=== PATIENT | male | born 1955 | race Caucasian/White ===

== ENCOUNTER → 2016-02-16 | Outpatient (CLI) | payer OTHER ==
[~2016-02-16] MED LIST: 1-ME1LIQ PO; LORTA5 PO; LOSA100T PO; PRIL20CA PO; Z.0.WALKERFRONT
[2016-02-16 08:26] LABS: AUTOMATED NEUTROPHIL # 4.7 TH/MM3 (1.8-7.7); BASOPHIL % 0.5 % (0.0-2.0); EOSINOPHIL # 0.1 TH/MM3 (0-0.4); EOSINOPHIL % 1.6 % (0.0-4.0); HEMATOCRIT 45.1 % (39.0-51.0); HEMO FLAGS DIFF FINAL; LYMPHOCYTE # 1.3 TH/MM3 (1.0-4.8); MEAN CELL VOLUME 86.1 FL (80.0-100.0); MEAN CORPUSCULAR HEMOGLOBIN 29.6 PG (27.0-34.0); MEAN CORPUSCULAR HGB CONC 34.4 % (32.0-36.0); MONO % 5.3 % (0.0-8.0); NEUT % 72.6 % (16.0-70.0); PLATELET COUNT 189 TH/MM3 (150-450); RED BLOOD COUNT 5.23 MIL/MM3 (4.50-5.90); RED CELL DISTRIBUTION WIDTH 12.8 % (11.6-17.2); WHITE BLOOD COUNT 6.5 TH/MM3 (4.0-11.0)
[2016-02-16 08:34] LABS: BLOOD, URINE NEG (NEG); COMMENT (UR) CULT NOT INDICATED; CULTURE IF INDICATED CULT NOT INDICATED; GLUCOSE,URINE NEG (NEG); KETONE, URINE NEG (NEG); MUCUS URINE FEW /lpf (OCC); NITRITE,URINE NEG (NEG); PH, URINE 5.5 (5.0-8.5); URINE COLOR YELLOW (YELLW/STRAW)
[2016-02-16 08:42] LABS: ALT (GPT) 42 U/L (12-78); ANION GAP 8 MEQ/L (5-15); AST (GOT) 16 U/L (15-37); BICARBONATE 26.5 MEQ/L (21.0-32.0); BLOOD UREA NITROGEN 17 MG/DL (7-18); CHLORIDE 107 MEQ/L (98-107); GLOMERULAR FILTRATION RATE 57 ML/MIN (>89); GLUCOSE,FASTING 110 MG/DL (74-99); POTASSIUM 4.3 MEQ/L (3.5-5.1); SODIUM (NA) 141 MEQ/L (136-145)
[2016-02-16 08:51] LABS: ALKALINE PHOSPHATASE 62 U/L (45-117); FREE T4 0.98 NG/DL (0.76-1.46); HDL CHOLESTEROL 40.1 MG/DL (40.0-60.0); LDL CHOLESTEROL 124 MG/DL (0-99); TOTAL BILIRUBIN ADULT 0.7 MG/DL (0.2-1.0)
== END ==
LOC: CLAB 07:52
PROVIDERS: ATTEND Internal Medicine
DX: N40.1 Benign prostatic hyperplasia with lower urinary tract symptoms (principal); I10 Essential (primary) hypertension; R53.83 Other fatigue; E29.1 Testicular hypofunction; Z12.11 Encounter for screening for malignant neoplasm of colon; Z79.899 Other long term (current) drug therapy
CPT/HCPCS: 36415; 80053; 80061; 81001; 84153; 84403; 84439; 84443; 84481; 85025

== ENCOUNTER → 2017-02-26 | Outpatient (CLI) | payer OTHER ==
[2017-02-26 08:19] LABS: MEAN CELL VOLUME 88.2 FL (80.0-100.0); MEAN PLATELET VOLUME 8.9 FL (7.0-11.0); NEUT % 71.4 % (16.0-70.0); PLATELET COUNT 197 TH/MM3 (150-450); RED BLOOD COUNT 4.99 MIL/MM3 (4.50-5.90); RED CELL DISTRIBUTION WIDTH 12.5 % (11.6-17.2); WHITE BLOOD COUNT 6.2 TH/MM3 (4.0-11.0)
[2017-02-26 08:20] LABS: AUTOMATED NEUTROPHIL # 4.4 TH/MM3 (1.8-7.7); BASOPHIL % 0.6 % (0.0-2.0); EOSINOPHIL # 0.1 TH/MM3 (0-0.4); EOSINOPHIL % 1.7 % (0.0-4.0); LYMPH % 20.8 % (9.0-44.0); LYMPHOCYTE # 1.3 TH/MM3 (1.0-4.8); MONO % 5.5 % (0.0-8.0); MONOCYTE # 0.3 TH/MM3 (0-0.9)
[2017-02-26 08:32] LABS: BILIRUBIN, URINE NEG (NEG); BLOOD, URINE NEG (NEG); GLUCOSE,URINE NEG (NEG); KETONE, URINE NEG (NEG); MUCUS URINE FEW /lpf (OCC); NITRITE,URINE NEG (NEG); PH, URINE 6.5 (5.0-8.5); URINE COLOR YELLOW (YELLW/STRAW); URINE LEUKOCYTE ESTERASE SMALL (NEG)
[2017-02-26 08:47] LABS: ALBUMIN 4.2 GM/DL (3.4-5.0); AST (GOT) 18 U/L (15-37); BICARBONATE 28.6 MEQ/L (21.0-32.0); BLOOD UREA NITROGEN 16 MG/DL (7-18); CALCIUM 8.5 MG/DL (8.5-10.1); CHLORIDE 104 MEQ/L (98-107); CHOLESTEROL 172 MG/DL (120-200); GLOMERULAR FILTRATION RATE 62 ML/MIN (>89); GLUCOSE,FASTING 97 MG/DL (74-99); SODIUM (NA) 139 MEQ/L (136-145)
[2017-02-26 09:12] LABS: ALKALINE PHOSPHATASE 61 U/L (45-117); ALT (GPT) 38 U/L (12-78); CHOLESTEROL/ HDL RATIO 4.59 RATIO; FREE T3 3.13 PG/ML (2.18-3.98); FREE T4 0.97 NG/DL (0.76-1.46); HDL CHOLESTEROL 37.4 MG/DL (40.0-60.0); LDL CHOLESTEROL 114 MG/DL (0-99); TOTAL BILIRUBIN ADULT 0.7 MG/DL (0.2-1.0); TOTAL PROTEIN 7.6 GM/DL (6.4-8.2); TRIGLYCERIDES 103 MG/DL (42-150)
== END ==
LOC: CLAB 07:43
PROVIDERS: ATTEND Urology
DX: R97.20 Elevated prostate specific antigen [PSA] (principal); E29.1 Testicular hypofunction; Z12.11 Encounter for screening for malignant neoplasm of colon; Z12.5 Encounter for screening for malignant neoplasm of prostate
CPT/HCPCS: 36415; 80053; 80061; 81001; 82607; 84153; 84403; 84439; 84443; 84481; 85025

== ENCOUNTER 2017-11-16 20:35 | Inpatient (IN) ==
[2017-11-16] MEDS ORDERED: Aspirin 325 MG Tablet PO ONE (20:58)
--- NOTE | 2017-11-16 21:05 | XR ---
EXAM DATE: 11/16/2017 8:48 PM EDT AGE/SEX: 62 years / Male INDICATIONS: Chest pain CLINICAL DATA: This is the patient's initial encounter. Patient reports that signs and symptoms have been present for 1 day and indicates a pain score of 0/10. MEDICAL/SURGICAL HISTORY: Hypertension. None. COMPARISON: [facility] [place], CHEST PA & LAT, 11/06/2012. . FINDINGS: A single AP view of the chest demonstrates the lungs to be symmetrically aerated without evidence of mass, infiltrate or effusion. The cardiomediastinal contours are unremarkable. Osseous structures a re intact. CONCLUSION: The lungs are clear. Electronically signed by: Leo Sutherland MD 11/16/2017 9:04 PM EDT
[2017-11-16 21:12] LABS: Baso % (Auto) 0.4 % (0.0-2.0); Eos # (Auto) 0.1 th/mm3 (0.0-0.4); Eos % (Auto) 0.8 % (0.0-4.0); Hematocrit 42.7 % (39.0-51.0); Lymph # (Auto) 1.8 th/mm3 (1.0-4.8); Lymph % (Auto) 21.7 % (9.0-44.0); Mean Corpuscular Hemoglobin 30.9 pg (27.0-34.0); Mean Corpuscular Volume 88.1 fL (80.0-100.0); Mean Platelet Volume 9.4 fL (7.0-11.0); Mono # (Auto) 0.2 th/mm3 (0.0-0.9); Mono % (Auto) 2.5 % (0.0-8.0); Neut # (Auto) 6.2 th/mm3 (1.8-7.7); Neut % (Auto) 74.6 % (16.0-70.0); Platelet Count 175 th/mm3 (150-450); Red Blood Count 4.85 mil/mm3 (4.50-5.90); Red Cell Distribution Width 12.7 % (11.6-17.2); White Blood Count 8.3 th/mm3 (4.0-11.0)
--- NOTE | 2017-11-16 21:19 | ED ---
HPI General Chief complaint: Chest Pain Stated complaint: chest pain Time Seen by Provider: 11/16/17 20:46 History of Present Illness HPI narrative: Patient is a 62-year-old male that presents for the evaluation of feeling as if he was going to pass out. The patient states that around an hour ago he was sitting at the table within his home when he began to feel flush in the face, palpitations, and weakness. The patient states that nothing like this has ever happened before. He states that the only other time he has ever felt like this is when he had a severe reaction to sulfa medication. However, the patient states that he is not experiencing any throat itchiness or swelling now. He denies any recent exposure to sulfa drugs. The patient's , who states she is a retired nurse, is at the bedside and states that she took his BP and HR at home. She states that when she measured his BP at home it was 70/40. She states that his HR was 130. The patient states that he currently feels much better than he did at home. He denies any pain at this time. Upon review of symptoms the patient reports chills and shivering which he states were much worse at home. He denies chest pain or shortness of breath. He denies dizziness and headache. He states that when the symptoms first began he did feel lightheaded. He denies vomiting but states that he does feel nauseous. Patient denies any history of chest pain. He denies any chest pain during the entire symptoms but per he did complain of heaviness to his chest and did appear to be catching his breath a couple of times. Patient completely denies this however. Related Data Home Medications Medication Instructions Recorded Confirmed aspirin [Aspir-81] 81 mg PO 3XW 11/16/17 11/16/17 losartan 100 mg PO DAILY 11/16/17 11/16/17 omeprazole magnesium [Prilosec OTC] 20 mg PO EVERY OTHER DAY 11/16/17 11/16/17 Allergies Allergy/AdvReac Type Severity Reaction Status Date / Time Sulfa (Sulfonamide Allergy Severe LOW B/P, Verified 11/16/17 20:42 Antibiotics) SOB,RAPID HEART RATE PMFSH Medical History Medical History HTN (hypertension) (Acute) Mitral valve prolapse (Acute) Surgical History Surgical History History of left knee replacement (Acute) S/P cervical spinal fusion (Acute) Social History Social History Substance History: No History of Abuse Second Hand Smoke Exposure: No Smoking Status: Never smoker How Often Do You Have a Drink Containing Alcohol: 2 to 3 times a week Recent Travel in [facility] within the Last 8 Weeks: No Recent Out of Country Travel within the Last 8 Weeks: No Immunization History Tetanus Immunization: <5 Years Exam Narrative Exam Narrative: GENERAL: well appearing SKIN: Focused skin assessment warm/dry. HEAD: Atraumatic. Normocephalic. EYES: Pupils equal and round. No scleral icterus. No injection or drainage. ENT: No nasal bleeding or discharge. Mucous membranes pink and moist. Tongue is midline. No uvula deviation. NECK: Trachea midline. No JVD. CARDIOVASCULAR: Regular rate and rhythm. No murmur appreciated. RESPIRATORY: No accessory muscle use. Clear to auscultation. Breath sounds equal bilaterally. GASTROINTESTINAL: Abdomen soft, non-tender, nondistended. Hepatic and splenic margins not palpable. MUSCULOSKELETAL: No obvious deformities. No clubbing. No cyanosis. No edema. Full range of motion of the upper and lower extremities bilaterally. 2+ pulses bilaterally. NEUROLOGICAL: Awake and alert. No obvious cranial nerve deficits. Motor grossly within normal limits. Normal speech. PSYCHIATRIC: Appropriate mood and affect; insight and judgment normal. Course Initial Documented Vital Signs Temperature 97.8 F 11/16/17 20:37 Pulse Rate 74 11/16/17 20:37 Respiratory Rate 16 11/16/17 20:37 Blood Pressure 196/95 H 11/16/17 20:37 Pulse Oximetry 99 11/16/17 20:37 Last Documented Vital Signs Temperature 97.8 F 11/16/17 20:37 Pulse Rate 95 H 11/16/17 22:41 Respiratory Rate 16 11/16/17 22:41 Blood Pressure 143/67 H 11/16/17 22:41 Pulse Oximetry 95 11/16/17 22:41 Medical Decision Making MDM Narrative Medical Screen Exam Complete: Yes Emergency Medical Condition: Yes Differential Diagnosis Differential Diagnosis: NSTEMI versus ACS versus STEMI versus presyncope versus syncope versus dehydration versus palpitations Medical Records Medical records reviewed: Yes I reviewed the patient's medical records. Lab Data Lab results reviewed: Yes I reviewed the patient's lab results. Lab results narrative: Troponin slightly elevated. Coags within normal limits. Result diagrams: 11/16/17 20:55 11/16/17 20:55 Lab Results 11/16/17 11/16/17 11/16/17 Range/Units 20:55 20:55 20:55 WBC 8.3 (4.0-11.0) th/mm3 RBC 4.85 (4.50-5.90) mil/mm3 Hgb 15.0 (13.0-17.0) gm/dL Hct 42.7 (39.0-51.0) % MCV 88.1 (80.0-100.0) fL MCH 30.9 (27.0-34.0) pg MCHC 35.0 (32.0-36.0) % RDW 12.7 (11.6-17.2) % Plt Count 175 (150-450) th/mm3 MPV 9.4 (7.0-11.0) fL Neut % (Auto) 74.6 H (16.0-70.0) % Lymph % (Auto) 21.7 (9.0-44.0) % [place] % (Auto) 2.5 (0.0-8.0) % Eos % (Auto) 0.8 (0.0-4.0) % Baso % (Auto) 0.4 (0.0-2.0) % Neut # (Auto) 6.2 (1.8-7.7) th/mm3 Lymph # (Auto) 1.8 (1.0-4.8) th/mm3 [place] # (Auto) 0.2 (0.0-0.9) th/mm3 Eos # (Auto) 0.1 (0.0-0.4) th/mm3 Baso # (Auto) 0.0 (0.0-0.2) th/mm3 WBC Differential . Differential Comment Auto diff final PT 10.6 (9.8-11.6) sec INR 1.0 Ratio APTT 22.8 L (24.3-30.1) sec Sodium 144 (136-145) meq/L Potassium 4.0 (3.5-5.1) meq/L Chloride 105 (98-107) meq/L Carbon Dioxide 26.0 (21.0-32.0) meq/L Anion Gap 13 (5-15) meq/L BUN 15 (7-18) mg/dL Creatinine 1.47 H (0.60-1.30) mg/dL Estimated GFR 49 L (>89) mL/min Random Glucose 158 H (74-106) mg/dL Calcium 7.8 L (8.5-10.1) mg/dL Magnesium 2.1 (1.5-2.5) mg/dL Total Bilirubin 0.5 (0.2-1.0) mg/dL AST 27 (15-37) U/L ALT 42 (12-78) U/L Alkaline Phosphatase 59 (45-117) U/L Total Creatine Kinase 329 H (39-308) U/L CK-MB (CK-2) 4.3 H (0.5-3.6) ng/mL CK-MB (CK-2) % 1.3 (0.0-4.0) % Troponin I 0.17 H (0.02-0.05) ng/mL Total Protein 7.4 (6.4-8.2) g/dL Albumin 4.1 (3.4-5.0) g/dL Lipase 119 (73-393) U/L Imaging Data Attestation: I personally reviewed and interpreted this imaging study as follows : Radiologist's impression: Chest X-Ray 11/16/17 20:48 CONCLUSION: The lungs are clear. Head CT 11/16/17 20:58 CONCLUSION: 1. Negative noncontrast CT brain. . ECG Data Attestation: I personally reviewed and interpreted this ECG as follows: Interpretation: EKG shows sinus rhythm with no sign of acute ischemia and arrhythmia read by me and attending. [place] interval of 176 milliseconds, ventricular rate of 77 bpm. No signs of ST elevation or ischemia. Discharge Plan Discharge Disposition Patient Disposition: 30 Still Patient Discharge Details Diagnosis: Acute non-ST elevation myocardial infarction (NSTEMI) Physicians Team ED Provider: Malvin [facility] ED Midlevel Provider: Robert Galaviz Primary Care Provider: Ino Olson Attending Provider: Julia Nair Interventions Interventions: Vital Signs Last Done: 11/16/17 22:41 Status ED Status: Admitted Patient
[2017-11-16 21:24] LABS: Activated Partial Thrombo Time 22.8 sec (24.3-30.1); Prothrombin Time 10.6 sec (9.8-11.6)
[2017-11-16 21:28] LABS: Alanine Aminotransferase 42 U/L (12-78); Albumin 4.1 g/dL (3.4-5.0); Anion Gap 13 meq/L (5-15); Aspartate Aminotransferase 27 U/L (15-37); Blood Urea Nitrogen 15 mg/dL (7-18); Calcium 7.8 mg/dL (8.5-10.1); Chloride 105 meq/L (98-107); Glucose,Random 158 mg/dL (74-106); Lipase 119 U/L (73-393); Magnesium 2.1 mg/dL (1.5-2.5); Sodium 144 meq/L (136-145)
[2017-11-16 21:33] LABS: Alkaline Phosphatase 59 U/L (45-117); Creatine Kinase 329 U/L (39-308); Glomerular Filtration Rate 49 mL/min (>89); Total Protein 7.4 g/dL (6.4-8.2); Troponin I 0.17 ng/mL (0.02-0.05)
[2017-11-16 21:46] LABS: CKMB Percent 1.3 % (0.0-4.0); Creatine Kinase MB 4.3 ng/mL (0.5-3.6)
--- NOTE | 2017-11-16 22:06 | CT ---
EXAM DATE: 11/16/2017 9:04 PM EDT AGE/SEX: 62 years / Male INDICATIONS: Altered mental status. CLINICAL DATA: This is the patient's initial encounter. Patient reports that signs and symptoms have been present for 1 day and indicates a pain score of 0/10. MEDICAL/SURGICAL HISTORY: Cardiovascular disease. Hypertension. Fusion, cervical. Total knee repl acement, left. RADIATION DOSE: 37.21 CTDI (mGy) COMPARISON: No prior exams available for comparison. TECHNIQUE: CT of the head without contrast. Using automated exposure control and adjustment of the mA and/or kV according to patient size, radiation dose was kept as low as reasonably achievable to ob tain optimal diagnostic quality images. DICOM format image data is available electronically for revi ew and comparison. FINDINGS: Cerebrum: The ventricles are normal for age. No evidence of midline shift, mass lesion, hemorrhage or acute infarction. No extraaxial fluid collections are seen. Posterior Fossa: The cerebellum and brainstem are intact. The 4th ventricle is midline. The cerebe llopontine angle is unremarkable. Extracranial: The visualized portion of the orbits is intact. Skull: The calvaria is intact. No evidence of skull fracture. CONCLUSION: 1. Negative noncontrast CT brain. . Electronically signed by: Leo Sutherland MD 11/16/2017 10:04 PM EDT
[2017-11-16] MEDS ORDERED: Heparin 10,000 UNITS/10 ML Vial (for IV use) IV.PUSH STA (22:26)
[2017-11-16] MEDS: Heparin Drip 25,000 UNIT/250 ML BAG IV.CONT PRN (22:39)
[2017-11-16] MEDS ORDERED: Morphine Inj 4 MG/ML Vial IV.PUSH PRN (22:49)
[2017-11-16] MEDS ORDERED: Bisacodyl 10 MG Supp RECTAL PRN (22:50)
--- NOTE | 2017-11-16 22:51 | P.HPIM ---
History of Present Illness Primary Care Physician: Ino Olson MD History of Present Illness: This is a 62-year-old male with a PMH of HTN who was brought to the ER by EMS secondary to episode of dizziness and diaphoresis. Pt states he was at home having dinner when he had sudden onset of facial flushing and dizziness. 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 Upon EMS arrival, BP had normalized. Pt without complaints of chest pain or SOB. Reports following w/ Dr. Troy in the past for c/o SOB, had negative Stress Test, Echo, Holter and PFTs at that time. On arrival, BP 196/95, HR 74, O2 sat 99% on RA, Afebrile. CBC unremarkable. INR 1.0. Creatinine 1.47, no previous labs for comparison. GFR 49. CPK 329. Troponin 0.17. CXR with no acute findings. CT Head negative. Currently on Heparin gtt. Remains chest pain free. - Diagnosis (1) NSTEMI (non-ST elevated myocardial infarction) (2) Renal insufficiency (3) Dehydration Review of Systems PAST FAMILY HISTORY: Reviewed. No h/o DM or CAD All other systems reviewed negative except as stated in HPI PMFSH - History History Provided By: Patient - Medical History Medical History: Medical History (Last Reviewed 11/16/17 @ 22:58 by KATELIN Gleason) HTN (hypertension) Mitral valve prolapse - Surgical History Surgical History: Surgical History (Last Reviewed 11/16/17 @ 22:58 by KATELIN Gleason) History of left knee replacement S/P cervical spinal fusion - Tobacco History Second Hand Smoke Exposure: No Smoking Status: Never smoker - Alcohol History How Often Do You Have a Drink Containing Alcohol: 2 to 3 times a week - Substance Use History Substance History: No History of Abuse - Travel History Recent Travel in the [place] Within the Last 8 Weeks: No Recent Travel Out of the Country Within the Last 8 Weeks: No - Immunization History Tetanus Immunization: <5 Years Medications and Allergies Active Medications: Active Medications Heparin Sodium/Dextrose (Heparin/D5w 25,000 U/250 Ml) 25,000 unit in 250 mls @ 0 mls/hr IV.CONT TITRATE PRN; Protocol PRN Reason: Per Protocol Last Admin: 11/16/17 22:39 Dose: 1,000 units/hr, 10 mls/hr Sodium Chloride (Ns Flush) 2 ml IV.FLUSH UNSCH PRN PRN Reason: FLUSH AFTER USING IV ACCESS Allergies Allergy/AdvReac Type Severity Reaction Status Date / Time Sulfa (Sulfonamide Allergy Severe LOW B/P, Verified 11/16/17 20:42 Antibiotics) SOB,RAPID HEART RATE Home Medications Medication Instructions Recorded Confirmed Type aspirin [Aspir-81] 81 mg PO 3XW 11/16/17 11/16/17 History losartan 100 mg PO DAILY 11/16/17 11/16/17 History omeprazole magnesium [Prilosec OTC] 20 mg PO EVERY OTHER DAY 11/16/17 11/16/17 History Exam Vital signs: Vital Signs 11/16/17 20:37 11/16/17 20:41 11/16/17 22:41 Temperature 97.8 F Pulse Rate 74 78 95 H Respiratory Rate 16 18 16 Blood Pressure 196/95 H 176/86 H 143/67 H Pulse Oximetry 99 97 95 Intake & Output 11/16/17 11/16/17 11/17/17 06:59 18:59 06:59 Weight 99.79 kg Narrative: PE: GENERAL: Extremely pleasant middle-aged white male in no acute distress. at bedside. +facial flushing. SKIN: Focused skin assessment warm and dry. HEENT: PERRLA, EOMI. No scleral icterus or conjunctival pallor. No lid lag or facial droop. CARDIOVASCULAR: Regular rate and rhythm. No obvious murmurs to auscultation. No chest tenderness to palpation. RESPIRATORY: No obvious rhonchi or wheezing. Clear to auscultation. Breath sounds equal bilaterally. GASTROINTESTINAL: Abdomen soft, non-tender, nondistended. BS normal. MUSCULOSKELETAL: Extremities without clubbing, cyanosis, or edema. No obvious deformities. NEUROLOGICAL: Awake, alert and oriented x4. No focal neurologic deficits. Moving both upper and lower extremities spontaneously. PSYCHIATRIC: Appropriate mood and affect. Insight and judgment normal. Results - Labs CBC & Chem 7: 11/16/17 20:55 11/16/17 20:55 Labs: Short CBC 11/16/17 Range/Units 20:55 WBC 8.3 (4.0-11.0) th/mm3 Hgb 15.0 (13.0-17.0) gm/dL Hct 42.7 (39.0-51.0) % Plt Count 175 (150-450) th/mm3 BMP 11/16/17 20:55 Sodium 144 Potassium 4.0 Chloride 105 Carbon Dioxide 26.0 BUN 15 Creatinine 1.47 H Calcium 7.8 L Cardiac Enzymes 11/16/17 Range/Units 20:55 Total Creatine Kinase 329 H (39-308) U/L CK-MB (CK-2) 4.3 H (0.5-3.6) ng/mL Troponin I 0.17 H (0.02-0.05) ng/mL Liver Function 11/16/17 Range/Units 20:55 Total Bilirubin 0.5 (0.2-1.0) mg/dL AST 27 (15-37) U/L ALT 42 (12-78) U/L Alkaline Phosphatase 59 (45-117) U/L Albumin 4.1 (3.4-5.0) g/dL - Imaging Impressions Chest X-Ray 11/16/17 20:48 CONCLUSION: The lungs are clear. Head CT 11/16/17 20:58 CONCLUSION: 1. Negative noncontrast CT brain. . Caprini VTE Risk Assessment Caprini VTE Risk Assessment: No/Low Risk (score <= 1) Caprini Risk Assessment Model: Point Value = 1 Point Value = 2 Point Value = 3 Point Value = 5 Age 41-60 Minor surgery BMI > 25 kg/m2 Swollen legs Varicose veins or History of unexplained or recurrent spontaneous Oral contraceptives or hormone replacement Sepsis (< 1 month) Serious lung disease, including pneumonia (< 1 month) Abnormal pulmonary function Acute myocardial infarction Congestive heart failure (< 1 month) History of inflammatory bowel disease Medical patient at bed rest Age 61-74 Arthroscopic surgery Major open surgery (> 45 min) Laparoscopic surgery (> 45 min) Malignancy Confined to bed (> 72 hours) Immobilizing plaster cast Central venous access Age >= 75 History of VTE Family history of VTE Factor V Leiden Prothrombin [id number] Lupus anticoagulant Anticardiolipin antibodies Elevated serum homocysteine Heparin-induced thrombocytopenia Other congenital or acquired thrombophilia Stroke (< 1 month) Elective arthroplasty Hip, pelvis, or leg fracture Acute spinal cord injury (< 1 month) Prophylaxis Regimen: Total Risk Factor Score Risk Level Prophylaxis Regimen 0-1 Low Early ambulation 2 Moderate Order ONE of the following: *Sequential Compression Device (SCD) *Heparin 5000 units SQ BID 3-4 Higher Order ONE of the following medications: *Heparin 5000 units SQ TID *Enoxaparin/Lovenox 40 mg SQ daily (WT < 150 kg, CrCl > 30 mL/min) *Enoxaparin/Lovenox 30 mg SQ daily (WT < 150 kg, CrCl > 10-29 mL/min) *Enoxaparin/Lovenox 30 mg SQ BID (WT < 150 kg, CrCl > 30 mL/min) AND/OR *Sequential Compression Device (SCD) 5 or more Highest Order ONE of the following medications: *Heparin 5000 units SQ TID (Preferred with Epidurals) *Enoxaparin/Lovenox 40 mg SQ daily (WT < 150 kg, CrCl > 30 mL/min) *Enoxaparin/Lovenox 30 mg SQ daily (WT < 150 kg, CrCl > 10-29 mL/min) *Enoxaparin/Lovenox 30 mg SQ BID (WT < 150 kg, CrCl > 30 mL/min) AND *Sequential Compression Device (SCD) Assessment and Plan - Assessment (1) NSTEMI (non-ST elevated myocardial infarction) Code(s): I21.4 - Non-ST elevation (NSTEMI) myocardial infarction Status: Acute (2) Renal insufficiency Code(s): N28.9 - Disorder of kidney and ureter, unspecified Status: Acute (3) Dehydration Code(s): E86.0 - Dehydration Status: Acute - Plan A/P: 1. NSTEMI: Trop 0.17, EKG w/ no acute ischemia, remains chest pain free, currently on Heparin gtt, will continue. Add ASA, Statin and Metoprolol. Admit to [facility], telemetry, check serial cardiac enzymes, check Lipid Profile. Consult Cardiology, following w/ Dr. Troy in the past. NPO, IVF. NTG/ Morphine prn. 2. JOSEPH: Creatinine 1.47, no previous labs for comparison, presumably new. IVF for hydration, monitor I/O, repeat labs in am. 3. Dehydration: GFR 49, transient episode of hypotension, now resolved, continue IVF, monitor vitals closely, monitor I/O. 4. DVT Prophylaxis: Heparin gtt 5. Social work for d/c planning as needed. 6. Case discussed w/ ER physician at length, labs/records/imaging reviewed by me.
[2017-11-16] MEDS: Sod Chloride 0.9% Inj 1,000 ML IV.CONT SCH (23:38)
[2017-11-17 03:27] LABS: Baso % (Auto) 0.4 % (0.0-2.0); Eos # (Auto) 0.1 th/mm3 (0.0-0.4); Eos % (Auto) 0.8 % (0.0-4.0); Hematocrit 39.3 % (39.0-51.0); Hemoglobin 13.3 gm/dL (13.0-17.0); Lymph # (Auto) 1.5 th/mm3 (1.0-4.8); Lymph % (Auto) 13.8 % (9.0-44.0); Mean Corpuscular HGB Conc 33.8 % (32.0-36.0); Mean Corpuscular Hemoglobin 29.8 pg (27.0-34.0); Mean Corpuscular Volume 88.3 fL (80.0-100.0); Mean Platelet Volume 8.8 fL (7.0-11.0); Mono # (Auto) 0.5 th/mm3 (0.0-0.9); Mono % (Auto) 4.5 % (0.0-8.0); Neut # (Auto) 8.9 th/mm3 (1.8-7.7); Neut % (Auto) 80.5 % (16.0-70.0); Platelet Count 165 th/mm3 (150-450); Red Blood Count 4.45 mil/mm3 (4.50-5.90); Red Cell Distribution Width 12.7 % (11.6-17.2)
[2017-11-17 03:52] LABS: Alanine Aminotransferase 36 U/L (12-78); Albumin 3.5 g/dL (3.4-5.0); Anion Gap 9 meq/L (5-15); Aspartate Aminotransferase 19 U/L (15-37); Blood Urea Nitrogen 15 mg/dL (7-18); Calcium 7.7 mg/dL (8.5-10.1); Carbon Dioxide 27.3 meq/L (21.0-32.0); Chloride 108 meq/L (98-107); Cholesterol 140 mg/dL (120-200); Glomerular Filtration Rate 55 mL/min (>89); Glucose,Random 104 mg/dL (74-106); Sodium 144 meq/L (136-145)
[2017-11-17 03:55] LABS: Alkaline Phosphatase 49 U/L (45-117); Creatine Kinase 222 U/L (39-308); HDL Cholesterol 31.1 mg/dL (40.0-60.0); LDL Cholesterol,Calculated 82 mg/dL (0-99); Total Protein 6.4 g/dL (6.4-8.2); Triglycerides 137 mg/dL (42-150); Troponin I 0.16 ng/mL (0.02-0.05)
[2017-11-17 04:07] LABS: Creatine Kinase MB 2.8 ng/mL (0.5-3.6)
[2017-11-17] MEDS: Metoprolol Tartrate 25 MG Tablet PO SCH ×2 (08:13→21:38)
[2017-11-17] MEDS: Senna/Docusate Sodium 8.6/50 MG Tablet PO SCH ×2 (08:17→21:39)
--- NOTE | 2017-11-17 10:25 | ECG ---
Date Performed: 11/16/2017 Time Performed: 20:50:54 PTAGE: 62 years EKG: Sinus rhythm MODERATE INTRAVENTRICULAR CONDUCTION DELAY BORDERLINE ECG Since the PREVIOUS TRACING , no significant change noted PREVIOUS TRACIN11/14/2014 11.02 DOCTOR: Coby Keller Interpretating Date/Time 11/17/2017 10:23:10
[2017-11-17] MEDS: Sod Chloride 0.9% Inj 1,000 ML IV.CONT SCH ×2 (10:30→21:38)
[2017-11-17] MEDS: Acetaminophen 325 MG Tablet PO PRN (11:02)
--- NOTE | 2017-11-17 11:34 | P.PNIM ---
Subjective Interval history: The patient was resting comfortably in bed. His family was at the bedside. Their questions were answered. The patient denied any symptoms. Discussed with nursing. Physical Exam Vital signs: Vital Signs 11/16/17 20:37 11/16/17 20:41 11/16/17 22:41 Temperature 97.8 F Pulse Rate 74 78 95 H Respiratory Rate 16 18 16 Blood Pressure 196/95 H 176/86 H 143/67 H Pulse Oximetry 99 97 95 11/16/17 23:46 11/17/17 00:00 11/17/17 01:00 Temperature 98.8 F Pulse Rate 90 86 74 Respiratory Rate 22 16 Blood Pressure 136/77 131/82 Pulse Oximetry 97 97 11/17/17 02:00 11/17/17 03:00 11/17/17 04:00 Temperature Pulse Rate 68 62 70 Respiratory Rate 16 Blood Pressure 115/60 Pulse Oximetry 98 11/17/17 05:00 11/17/17 06:00 11/17/17 07:00 Temperature 97.9 F Pulse Rate 62 58 L 62 Respiratory Rate 18 Blood Pressure 130/76 Pulse Oximetry 96 11/17/17 08:00 11/17/17 09:00 11/17/17 10:00 Temperature Pulse Rate 62 64 58 L Respiratory Rate Blood Pressure Pulse Oximetry 96 11/17/17 11:00 Temperature 98.8 F Pulse Rate 59 L Respiratory Rate 18 Blood Pressure 141/80 H Pulse Oximetry 98 Intake & Output 11/16/17 11/17/17 11/17/17 18:59 06:59 18:59 Intake Total 1000 / 1000 Output Total 200 / 200 Balance -200 / -200 1000 / 1000 Weight 98.4 kg Intake: IV 1000 / 1000 NS Inj 1,000 ML @ 100 mls/hr IV 1000 / 1000 .CONT .Q10H JAMILA Rx#:[id number] Output: Urine 200 / 200 Other: Date of Last Bowel Movement 11/17/17 # Bowel Movements 0 Weight On Admission 98.4 kg Narrative: GENERAL: No acute distress. SKIN: Focused skin assessment warm and dry. HEENT: PERRLA, EOMI. No scleral icterus or conjunctival pallor. No lid lag or facial droop. CARDIOVASCULAR: Regular rate and rhythm. No obvious murmurs to auscultation. No chest tenderness to palpation. RESPIRATORY: No obvious rhonchi or wheezing. Clear to auscultation. Breath sounds equal bilaterally. GASTROINTESTINAL: Abdomen soft, non-tender, nondistended. BS normal. MUSCULOSKELETAL: Extremities without clubbing, cyanosis, or edema. No obvious deformities. NEUROLOGICAL: Awake, alert and oriented x4. No focal neurologic deficits. Moving both upper and lower extremities spontaneously. PSYCHIATRIC: Appropriate mood and affect. Insight and judgment normal. Results - Labs CBC & Chem 7: 11/17/17 03:17 11/17/17 03:17 Laboratory Results - last 24 hr 11/16/17 11/16/17 11/16/17 20:55 20:55 20:55 WBC 8.3 RBC 4.85 Hgb 15.0 Hct 42.7 MCV 88.1 MCH 30.9 MCHC 35.0 RDW 12.7 Plt Count 175 MPV 9.4 Neut % (Auto) 74.6 H Lymph % (Auto) 21.7 [place] % (Auto) 2.5 Eos % (Auto) 0.8 Baso % (Auto) 0.4 Neut # (Auto) 6.2 Lymph # (Auto) 1.8 [place] # (Auto) 0.2 Eos # (Auto) 0.1 Baso # (Auto) 0.0 WBC Differential . Differential Comment Auto diff final PT 10.6 INR 1.0 APTT 22.8 L Sodium 144 Potassium 4.0 Chloride 105 Carbon Dioxide 26.0 Anion Gap 13 BUN 15 Creatinine 1.47 H Estimated GFR 49 L Random Glucose 158 H Calcium 7.8 L Magnesium 2.1 Total Bilirubin 0.5 AST 27 ALT 42 Alkaline Phosphatase 59 Total Creatine Kinase 329 H CK-MB (CK-2) 4.3 H CK-MB (CK-2) % 1.3 Troponin I 0.17 H Total Protein 7.4 Albumin 4.1 Triglycerides Cholesterol LDL Cholesterol, Calc HDL Cholesterol Cholesterol/HDL Ratio Lipase 119 11/17/17 11/17/17 11/17/17 03:17 03:17 03:17 WBC 11.0 RBC 4.45 L Hgb 13.3 Hct 39.3 MCV 88.3 MCH 29.8 MCHC 33.8 RDW 12.7 Plt Count 165 MPV 8.8 Neut % (Auto) 80.5 H Lymph % (Auto) 13.8 [place] % (Auto) 4.5 Eos % (Auto) 0.8 Baso % (Auto) 0.4 Neut # (Auto) 8.9 H Lymph # (Auto) 1.5 [place] # (Auto) 0.5 Eos # (Auto) 0.1 Baso # (Auto) 0.0 WBC Differential . Differential Comment Auto diff final PT INR APTT 32.4 H D Sodium Potassium Chloride Carbon Dioxide Anion Gap BUN Creatinine Estimated GFR Random Glucose Calcium Magnesium Total Bilirubin AST ALT Alkaline Phosphatase Total Creatine Kinase 222 CK-MB (CK-2) 2.8 CK-MB (CK-2) % Troponin I 0.16 H Total Protein Albumin Triglycerides Cholesterol LDL Cholesterol, Calc HDL Cholesterol Cholesterol/HDL Ratio Lipase 11/17/17 03:17 WBC RBC Hgb Hct MCV MCH MCHC RDW Plt Count MPV Neut % (Auto) Lymph % (Auto) [place] % (Auto) Eos % (Auto) Baso % (Auto) Neut # (Auto) Lymph # (Auto) [place] # (Auto) Eos # (Auto) Baso # (Auto) WBC Differential Differential Comment PT INR APTT Sodium 144 Potassium 4.0 Chloride 108 H Carbon Dioxide 27.3 Anion Gap 9 BUN 15 Creatinine 1.31 H Estimated GFR 55 L Random Glucose 104 Calcium 7.7 L Magnesium Total Bilirubin 0.4 AST 19 ALT 36 Alkaline Phosphatase 49 Total Creatine Kinase CK-MB (CK-2) CK-MB (CK-2) % Troponin I Total Protein 6.4 D Albumin 3.5 D Triglycerides 137 Cholesterol 140 LDL Cholesterol, Calc 82 HDL Cholesterol 31.1 L Cholesterol/HDL Ratio 4.50 Lipase - Imaging Impressions Chest X-Ray 11/16/17 20:48 CONCLUSION: The lungs are clear. Head CT 11/16/17 20:58 CONCLUSION: 1. Negative noncontrast CT brain. . Assessment and Plan - Assessment (1) NSTEMI (non-ST elevated myocardial infarction) Code(s): I21.4 - Non-ST elevation (NSTEMI) myocardial infarction Status: Acute (2) Renal insufficiency Code(s): N28.9 - Disorder of kidney and ureter, unspecified Status: Acute (3) Dehydration Code(s): E86.0 - Dehydration Status: Acute - Plan NSTEMI Trop 0.17, EKG w/ no acute ischemia, remains chest pain free. LDL is 82. -currently on heparin gtt. -continue ASA, statin and metoprolol. -Cardiology consult appreciated. Plan for cath in AM. -blood pressure control. JOSEPH Creatinine 1.47, elevated over baseline. -IVF for hydration, monitor I/O. -repeat labs in am. -check UA, calculate FENa. DVT Prophylaxis: Heparin gtt
[2017-11-17 11:56] LABS: Creatine Kinase 194 U/L (39-308); Troponin I 0.15 ng/mL (0.02-0.05)
[2017-11-17 12:08] LABS: Creatine Kinase MB 2.4 ng/mL (0.5-3.6)
--- NOTE | 2017-11-17 12:57 | P.CONCA ---
History of Present Illness Service: Cardiology Consult date: 11/17/17 Primary Care Provider: Ino Olson MD Family Provider: Ino Olson MD History of Present Illness: Pleasant 62-year-old male with a past history of shortness of breath palpitations and hypertension presented yesterday with complaints of becoming flushed, diaphoretic, and feeling like he was going to pass out. reports blood pressure was low and heart rate was elevated at the time of the incident. Patient reports that symptoms felt similar to what he experienced with a prior closure to the sulfa drug that he was allergic to. Patient denied any chest pain or shortness of breath associated with the incident, however his states he appeared short of breath. Troponin elevated 0.17. Patient is currently on a heparin drip. He denies any symptoms since admission to the hospital. All options discussed in detail with patient and . Risk of heart cath reviewed. PMF - History History Provided By: Patient - Medical History Medical History: Medical History (Last Reviewed 11/16/17 @ 22:58 by KATELIN Gleason) HTN (hypertension) Mitral valve prolapse - Surgical History Surgical History: Surgical History (Last Reviewed 11/16/17 @ 22:58 by KATELIN Gleason) History of left knee replacement S/P cervical spinal fusion - Social History I have reviewed the patient's Social History: Yes - Tobacco History Second Hand Smoke Exposure: No Smoking Status: Never smoker - Alcohol History How Often Do You Have a Drink Containing Alcohol: 2 to 4 times a month - Substance Use History Substance History: No History of Abuse - Travel History Recent Travel in the [place] Within the Last 8 Weeks: No Recent Travel Out of the Country Within the Last 8 Weeks: No - Immunization History Tetanus Immunization: <5 Years Hx Influenza Vaccine This Season: No Medications and Allergies Allergies Allergy/AdvReac Type Severity Reaction Status Date / Time Sulfa (Sulfonamide Allergy Severe LOW B/P, Verified 11/16/17 20:42 Antibiotics) SOB,RAPID HEART RATE Home Medications Medication Instructions Recorded Confirmed Type aspirin [Aspir-81] 81 mg PO 3XW 11/16/17 11/16/17 History losartan 100 mg PO DAILY 11/16/17 11/16/17 History omeprazole magnesium [Prilosec OTC] 20 mg PO EVERY OTHER DAY 11/16/17 11/16/17 History Active Medications: Active Medications Acetaminophen (Tylenol) 650 mg PO Q4H PRN PRN Reason: Temp > 100.4 Last Admin: 11/17/17 11:02 Dose: 650 mg Al Hydroxide/Mg Hydroxide (Milk Of Magnesia Liq) 30 ml PO Q12H PRN PRN Reason: Mild Constipation Aspirin (Ecotrin) 81 mg PO MoWeSa [facility] Last Admin: 11/17/17 08:13 Dose: 81 mg Bisacodyl (Dulcolax Supp) 10 mg RECTAL DAILY PRN PRN Reason: SEVERE CONSITIPATION Heparin Sodium/Dextrose (Heparin/D5w 25,000 U/250 Ml) 25,000 unit in 250 mls @ 0 mls/hr IV.CONT TITRATE PRN; Protocol PRN Reason: Per Protocol Last Titration: 11/17/17 04:00 Dose: 1,100 units/hr, 11 mls/hr Sodium Chloride (Ns Inj) 1,000 mls @ 100 mls/hr IV.CONT .Q10H [facility] Last Admin: 11/17/17 10:30 Dose: 100 mls/hr Lactulose (Lactulose Liq) 30 ml PO DAILY PRN PRN Reason: SEVERE CONSITIPATION Metoprolol Tartrate (Lopressor) 25 mg PO BID [facility] Last Admin: 11/17/17 08:13 Dose: 25 mg Morphine Sulfate (Morphine Inj) 2 mg IV.PUSH Q4H PRN PRN Reason: PAIN 6-10 Nitroglycerin (Nitro-Bid 2% Oint) 0.5 inch TOPICAL Q6HR PRN PRN Reason: CHEST PAIN Ondansetron HCl (Zofran Inj) 4 mg IV.PUSH Q6H PRN PRN Reason: NAUSEA OR VOMITING Pravastatin Sodium (Pravachol) 40 mg PO DAILY [facility] Last Admin: 11/17/17 08:16 Dose: Not Given Senna/Docusate Sodium (Benita-Colace) 1 tab PO BID [facility] Last Admin: 11/17/17 08:17 Dose: Not Given Sennosides (Senokot) 17.2 mg PO Q12H PRN PRN Reason: Moderate Constipation Sodium Chloride (Ns Flush) 2 ml IV.FLUSH UNSCH PRN PRN Reason: FLUSH AFTER USING IV ACCESS Exam Vital signs: Vital Signs 11/16/17 20:37 11/16/17 20:41 11/16/17 22:41 Temperature 97.8 F Pulse Rate 74 78 95 H Respiratory Rate 16 18 16 Blood Pressure 196/95 H 176/86 H 143/67 H Pulse Oximetry 99 97 95 11/16/17 23:46 11/17/17 00:00 11/17/17 01:00 Temperature 98.8 F Pulse Rate 90 86 74 Respiratory Rate 22 16 Blood Pressure 136/77 131/82 Pulse Oximetry 97 97 11/17/17 02:00 11/17/17 03:00 11/17/17 04:00 Temperature Pulse Rate 68 62 70 Respiratory Rate 16 Blood Pressure 115/60 Pulse Oximetry 98 11/17/17 05:00 11/17/17 06:00 11/17/17 07:00 Temperature 97.9 F Pulse Rate 62 58 L 62 Respiratory Rate 18 Blood Pressure 130/76 Pulse Oximetry 96 11/17/17 08:00 11/17/17 09:00 11/17/17 10:00 Temperature Pulse Rate 62 64 58 L Respiratory Rate Blood Pressure Pulse Oximetry 96 11/17/17 11:00 11/17/17 12:00 Temperature 98.8 F Pulse Rate 59 L 55 L Respiratory Rate 18 Blood Pressure 141/80 H Pulse Oximetry 98 Intake & Output 11/16/17 11/17/17 11/17/17 18:59 06:59 18:59 Intake Total 1000 / 1000 Output Total 200 / 200 Balance -200 / -200 1000 / 1000 Weight 98.4 kg Intake: IV 1000 / 1000 NS Inj 1,000 ML @ 100 mls/hr IV 1000 / 1000 .CONT .Q10H [facility] Rx#:[id number] Output: Urine 200 / 200 Other: Date of Last Bowel Movement 11/17/17 # Bowel Movements 0 Weight On Admission 98.4 kg - Constitutional no acute distress - Routine HEENT Exam Head: Present: normocephalic, atraumatic Eye: Present: EOMI, PERRL, normal accommodation ENT: Present: mucous membranes moist - Routine Respiratory Exam Present: CTA bilaterally - Routine Cardiovascular Exam Present: RRR - Routine Abdominal Exam Present: soft - Routine Skin Exam Present: intact - Routine Neurological Exam Present: alert, oriented X3 Results 11/18/17 03:30 11/18/17 03:30 Cardiac Enzymes 11/16/17 11/17/17 11/17/17 Range/Units 20:55 03:17 03:17 AST 27 19 (15-37) U/L CK-MB (CK-2) 4.3 H 2.8 (0.5-3.6) ng/mL Troponin I 0.17 H 0.16 H (0.02-0.05) ng/mL 11/17/17 Range/Units 11:08 AST (15-37) U/L CK-MB (CK-2) 2.4 (0.5-3.6) ng/mL Troponin I 0.15 H (0.02-0.05) ng/mL Coagulation 11/16/17 11/17/17 11/17/17 Range/Units 20:55 03:17 11:08 PT 10.6 (9.8-11.6) sec APTT 22.8 L 32.4 H D 33.3 H (24.3-30.1) sec Lipids 11/17/17 Range/Units 03:17 Triglycerides 137 (42-150) mg/dL Cholesterol 140 (120-200) mg/dL HDL Cholesterol 31.1 L (40.0-60.0) mg/dL Cholesterol/HDL Ratio 4.50 Ratio CBC 11/16/17 11/17/17 Range/Units 20:55 03:17 WBC 8.3 11.0 (4.0-11.0) th/mm3 RBC 4.85 4.45 L (4.50-5.90) mil/mm3 Hgb 15.0 13.3 (13.0-17.0) gm/dL Hct 42.7 39.3 (39.0-51.0) % Plt Count 175 165 (150-450) th/mm3 Neut # (Auto) 6.2 8.9 H (1.8-7.7) th/mm3 Lymph # (Auto) 1.8 1.5 (1.0-4.8) th/mm3 Guthrie # (Auto) 0.2 0.5 (0.0-0.9) th/mm3 Eos # (Auto) 0.1 0.1 (0.0-0.4) th/mm3 Baso # (Auto) 0.0 0.0 (0.0-0.2) th/mm3 Comprehensive Metabolic Panel 11/16/17 11/17/17 Range/Units 20:55 03:17 Sodium 144 144 (136-145) meq/L Potassium 4.0 4.0 (3.5-5.1) meq/L Chloride 105 108 H (98-107) meq/L Carbon Dioxide 26.0 27.3 (21.0-32.0) meq/L BUN 15 15 (7-18) mg/dL Creatinine 1.47 H 1.31 H (0.60-1.30) mg/dL Calcium 7.8 L 7.7 L (8.5-10.1) mg/dL AST 27 19 (15-37) U/L ALT 42 36 (12-78) U/L Alkaline Phosphatase 59 49 (45-117) U/L Total Protein 7.4 6.4 D (6.4-8.2) g/dL Albumin 4.1 3.5 D (3.4-5.0) g/dL Intake and Output 11/16/17 11/17/17 11/17/17 22:59 06:59 14:59 Intake Total 1000 / 1000 Output Total 200 / 200 Balance -200 / -200 1000 / 1000 Intake: IV 1000 / 1000 NS Inj 1,000 ML @ 100 mls/hr IV 1000 / 1000 .CONT .Q10H [facility] Rx#:[id number] Output: Urine 200 / 200 Other: Date of Last Bowel Movement 11/17/17 # Bowel Movements 0 Weight 99.79 kg 98.4 kg Weight On Admission 98.4 kg - Imaging and Cardiology Imaging: Impressions Chest X-Ray 11/16/17 20:48 CONCLUSION: The lungs are clear. Head CT 11/16/17 20:58 CONCLUSION: 1. Negative noncontrast CT brain. . Assessment and Plan - Plan Assessment NSTEMI HTN Renal Insufficiency Plan -Will plan to proceed with heart catheterization. Risks including, , bleeding, stroke, renal failure, heart attack etc. reviewed in detail with patient and . -On BB, Statin and ASA -Blood pressure is controlled. -Creatinine 1.31 today. Will repeat labs in AM. Patient was seen by Dr. Troy who participated in care management decision making. The exam, history, and the medical decision-making described in the above note were completed with the assistance of the mid-level provider. I reviewed and agree with the findings presented. I attest that I had a [id number] encounter with the patient on the same day, and personally performed and documented my assessment and findings in the medical record. risks of cath reviewed. Code Status: Full Code Discussed Condition With: and Nurse
[2017-11-17 14:31] LABS: Bilirubin,Urine Negative (Negative); Clarity,Urine Clear (Clear); Color,Urine Yellow (Yellw/Straw); Glucose,Urine (UA) Negative (Negative); Leukocyte Esterase,Urine Negative (Negative); Mucus,Urine Few /lpf (Occasional); Nitrite,Urine Negative (Negative)
--- NOTE | 2017-11-17 16:56 | ECG ---
Date Performed: 11/17/2017 Time Performed: 09:06:32 PTAGE: 62 years EKG: Sinus rhythm with borderline 1st degree A-V block. Borderline ECG Since PREVIOUS TRACING , no significant change noted DOCTOR: Coby Keller Interpretating Date/Time 11/17/2017 16:55:01
--- NOTE | 2017-11-17 17:07 | ECG ---
Date Performed: 11/17/2017 Time Performed: 03:32:00 PTAGE: 62 years EKG: Sinus rhythm with borderline 1st degree A-V block Borderline ECG Since PREVIOUS TRACING , no significant change noted DOCTOR: Coby Keller Interpretating Date/Time 11/17/2017 17:06:59
[2017-11-17] MEDS: Heparin Drip 25,000 UNIT/250 ML BAG IV.CONT PRN (22:00)
[2017-11-17 22:40] LABS: Creatinine,Urine Random 202 mg/dL (27-300)
[2017-11-18 03:44] LABS: Baso % (Auto) 0.4 % (0.0-2.0); Eos # (Auto) 0.2 th/mm3 (0.0-0.4); Eos % (Auto) 2.7 % (0.0-4.0); Hematocrit 39.1 % (39.0-51.0); Hemoglobin 13.3 gm/dL (13.0-17.0); Lymph # (Auto) 1.4 th/mm3 (1.0-4.8); Lymph % (Auto) 23.6 % (9.0-44.0); Mean Corpuscular HGB Conc 34.1 % (32.0-36.0); Mean Corpuscular Hemoglobin 30.6 pg (27.0-34.0); Mean Corpuscular Volume 89.8 fL (80.0-100.0); Mean Platelet Volume 8.9 fL (7.0-11.0); Mono # (Auto) 0.3 th/mm3 (0.0-0.9); Mono % (Auto) 4.5 % (0.0-8.0); Neut # (Auto) 4.1 th/mm3 (1.8-7.7); Neut % (Auto) 68.8 % (16.0-70.0); Platelet Count 145 th/mm3 (150-450); Red Blood Count 4.35 mil/mm3 (4.50-5.90); Red Cell Distribution Width 12.8 % (11.6-17.2)
[2017-11-18 03:54] LABS: Calcium 7.9 mg/dL (8.5-10.1); Carbon Dioxide 28.5 meq/L (21.0-32.0); Magnesium 2.2 mg/dL (1.5-2.5); Potassium 4.2 meq/L (3.5-5.1)
[2017-11-18] MEDS: Sod Chloride 0.9% Inj 1,000 ML IV.CONT SCH (06:18)
[2017-11-18] MEDS: Metoprolol Tartrate 25 MG Tablet PO SCH (08:20)
[2017-11-18] MEDS ORDERED: fentaNYL Citrate Inj 100 MCG/2 ML Ampul ONE (08:28)
[2017-11-18] MEDS ORDERED: Heparin/NS PF Inj 1,000 ML ONE (08:28)
[2017-11-18] MEDS: Senna/Docusate Sodium 8.6/50 MG Tablet PO SCH (09:16)
--- NOTE | 2017-11-18 09:57 | CATHPROC ---
[facility] HIS Report Study Information Study Number Admission Scheduled Start Study Start [id number] Nov 16 2017 10:57PM 11/18/2017 Nov 18 2017 8:29AM [facility]iac Catheter[facility] Admit Source Facility Department Other [facility] - Electric Organ Assembler Physician and Clinical Staff Initial MD Troy, William Pharmacy Coordinator Brooke Santos,RN Recorder Raina Sahu,OFFICE RENTAL CLERK TECH2 Scrub Keeley Dillard,BUSINESS LINE CONTROLLER Scrub Arti Cooper,BUSINESS LINE CONTROLLER TECH2 Procedures Performed Procedure Location (Site) Vessel Name Angiogram LV LV Ventricle Coronary Angiograms LCA Left Coronary Coronary Angiograms RCA Right Coronary L Heart Cath Equipment Time Remediation Bioanalytics Consultant Description Size Mfg Part Number Used/Scraped TRANSDUCER, TRJaba TechnologiesAVE [id number] 08:30 Epigami * Used W/STOCKCOCK *[id number] INTRODUCER SET, 08:30 [employer] FR 5 [id number] *[id number] Used MICROPUNCTURE STIFF 538-476 *[id number] 538-420 *[id number] 538-422 *[id number] [id number] *[id number] 08:30 TISSUELAB BLANKET,WARM AIR CCL * Used *[id number] 08:30 TISSUELAB PACK, CCL CUSTOM * Used *[id number] 08:30 Scan Man [employer] PACER PEN, SKIN DUAL W/ RULER * Used *[id number] 08:30 [employer]inte[employer]ics WIRE, 3MMJ .035 180CM 180CM Used *[id number] PROBE COVER, STERILE [id number] 08:30 Bug Music * Used ULTRASOUND W/ GEL *[id number] 08:30 NAMIC MANIFOLD, 4 PORT * Used *[id number] 09:32 NAMIC TUBING, HIGH PRESSURE 20" 20" Used *[id number] 08:30 NYCOMED OMNIPAQUE, 350 MG, 150ML 150ML [id number] Used 09:32 NYCOMED OMNIPAQUE, 350 MG, 50ML 50ML [id number] Used [id number] 08:30 TERUMO MEDICAL SHEATH, FR4 TERUMO (10CM) FR 4 Used *[id number] History: Current Medications Medication Dosage/Unit Route Frequency Last Date/Time Taken ASA LOPRESSOR Statins (any) History: Allergies Allergy Reaction Sulfa Drugs History: Risk Factors Family History of Hypertension Dyslipidemia Previous CA Previous Heart Failure Premature CAD Yes No No No No Prior Valve Prior PCI Prior CABG Surgery No No No Cerebrovascular Peripheral Artery Chronic Lung On Dialysis Diabetes Disease Disease Disease No No No No No History: Risk Factors Selection Items No Previous Cardiovascular Treatment History: Symptoms/Diagnosis Selection Items SOB History: Stress Tests Stress or Imaging Studies Performed No History: Other Disease Selection Items HTN History: Other Current Smoker No Labs Hgb (g/dl) Hct (%) RBC (MIL/MM3) WBC (l/cumm) Platelets (thousands) 11.60-17.00 35.00-51.00 4.00-5.90 4.00-11.00 150.00-450.00 13.3 39.1 4.3 6 145 Glucose (mg/dl) BUN (mg/dl) Creatinine (mg/dl) BUN:Creatinine (1:x) 74.00-106.00 7.00-18.00 0.50-1.30 10.00-20.00 111 16 1.1 14.5 Na (meq/l) K (meq/l) Cl (meq/l) CO2 (mmol/L) Ca (mg/dl) 136.00-145.00 3.50-5.10 98.00-107.00 21.00-32.00 8.50-10.10 145 4.2 110 28.5 7.9 PT (sec) PTT (sec) INR (PTT:PT) 9.80-11.60 24.30-30.10 0.90-1.10 10.6 37.8 1 Medication Medication Total Dose (Bolus/Oral) Medication Total Dosage/Unit 1% XYLOCAINE 20 mL FENTANYL 100 mcg VERSED 2 mg Medications (Bolus/Oral) Medication Time Given Dosage/Unit Administered By Reason VERSED 11/18/2017 9:02:57 AM 2 mg Brooke Santos 2 mg VERSED given in lab by Brooke Santos, RN in Left Antecubital via Peripheral IV. Ordered by William Gaspar. FENTANYL 11/18/2017 9:03:00 AM 50 mcg Brooke Santos 50 mcg FENTANYL given in lab by Brooke Santos, RN in Left Antecubital via Peripheral IV. Ordered by William Troy. 1% XYLOCAINE 11/18/2017 9:09:04 AM 20 mL William Troy 20 mL 1% XYLOCAINE given in lab by William Troy in Right Groin via Subcutaneous. Ordered by William Plata. FENTANYL 11/18/2017 9:32:38 AM 50 mcg Brooke Santos 50 mcg FENTANYL given in lab by Brooke Santos RN in Left Antecubital via Peripheral IV. Ordered by William Troy. Medication (Drip) Medication Time Given Dosage/Unit Concentration/Unit Diluent (ml) Solution IV Solutions 11/18/2017 8:31:26 AM 0 mL (IV) 1000 NaCl .9 Patient arrived on IV Solutions in Left Forearm via Peripheral IV. Pump/Drip Flow = 20 ml/hr using Na Cl .9. Ordered by William Troy. Initial Case Assessment Cardiovascular HR Rhythm NIBP Chest Pain 62 sr 153/86 0 Edema Present Skin color Skin None Normal Warm Dry Circulatory - Right Pulses Dorsalis Pedis Femoral 3 3 Scale (0,1,2,3,4,d) Circulatory - Left Pulses Dorsalis Pedis Femoral d 2 Scale (0,1,2,3,4,d) Circulatory - Lower Extremities Color Lower Right Color Lower Left Normal Normal Neurological State Oriented to time-place- Alert Moves all extremities person Respiration - General Respiration Rate SpO2 (%) (B/min) 16 100 Final Case Assessment Cardiovascular HR Rhythm NIBP Chest Pain 55 sr 137/84 0 Edema Present Skin color Skin None Normal Warm Dry Circulatory - Right Pulses Dorsalis Pedis Femoral 3 3 Scale (0,1,2,3,4,d) Circulatory - Left Pulses Dorsalis Pedis Femoral d 2 Scale (0,1,2,3,4,d) Circulatory - Lower Extremities Color Lower Right Color Lower Left Normal Normal Neurological State Oriented to time-place- Alert Moves all extremities person Respiration - General Respiration Rate SpO2 (%) (B/min) 19 93 Chronological Log Time Study Chronological Log 8:28:40 Patient arrived via Bed. 8:28:51 Patient Name, D.O.B, / Armband Verified By R.N. 8:28:52 Consent signed by the physician and the patient and verified by the Electric Organ Assembler staff. 8:28:53 Pre-op and post- op instructions given; patient acknowledges understanding of instructions. 8:28:54 Verbal Stimulation=2 Physical Stimulation=2 Airway=2 Respiration=2 TOTAL=8. (0=absent, 1=li mited, 2=present) 8:29:10 HEPARIN DRIP DISCONTINUED AT 0820 8:29:53 Presedation assessment performed by Electric Organ Assembler RN. 8:29:55 Patient has been NPO for More than 6Hrs. 8:29:56 Skin Breakdown/none per patient 8:30:08 Patient Warmer Placed on the Table. 8:30:11 Vika Prominences Protected 8:30:53 A # 20 IV was noted in the Antecubital (left). Grade = 0 8:31:17 A # 20 IV was noted in the Forearm (left). Grade = 0 Patient arrived on IV Solutions in Left Forearm via Peripheral IV. Pump/Drip Flow = 20 ml/hr usi ng NaCl .9. Ordered by 8:31:26 William Troy. Vitals capture started with the following parameters, Patient=Adult, Interval=5 min, Initial Pre kotyb=929 mmHg, 8:31:46 Deflation Rate=5 mmHg, Cuff placed on Left Arm 8:32:07 History and physical on the chart or being dictated. 8:32:11 Reference ECG taken 8:32:32 Bilateral groins prepped with 2% chlorhexidine, and draped after a 3 min. waiting time. Assessment: Initial Case, HR=62 BPM, Rhythm=sr, RFFQ=536/86 mmhg, Chest Pain=0, Edema=None, Beaver r=Normal, Skin = Warm, Dry Right Pulses: Babatunde Ped=3, Femoral=3 Left Pulses: Babatunde Ped=d, Femoral=2 8:32:49 Lower Right Extremities: Color=Normal Lower Left Extremities: Color=Normal Neurological: State=Alert, Ox3, COLLINS Respiration: Resp=16 B/min, UlH8=790 % 8:33:09 HR=64 bpm, UZXN=641/86 mmhg, SpO2=99.0 %, Resp=20 B/min 8:37:27 HR=62 bpm, THKF=039/85 mmhg, LkF3=129.0 %, Resp=17 B/min, Pain=0, Daphnie=10, Abel=2 8:42:30 HR=60 bpm, SXOI=141/84 mmhg, SpO2=98.0 %, Resp=17 B/min 8:44:39 Pressure channel 1 zeroed. 8:45:00 MD paged 8:45:01 MD responded 8:47:25 HR=57 bpm, DVRO=530/89 mmhg, SpO2=99.0 %, Resp=9 B/min, Pain=0, Daphnie=10, Abel=2 8:52:28 HR=56 bpm, DDID=776/88 mmhg, SpO2=99.0 %, Resp=15 B/min, Pain=0, Daphnie=10, Abel=2 8:57:25 HR=51 bpm, XSXY=669/91 mmhg, SpO2=98.0 %, Resp=15 B/min 8:58:56 HR=52 bpm, SpO2=98.0 %, Resp=16 B/min, Pain=0, Daphnie=10, Abel=2 9:02:28 HR=60 bpm, ZWKC=398/89 mmhg, SpO2=98.0 %, Resp=20 B/min, Pain=0, Daphnie=10, Abel=2 9:02:57 2 mg VERSED given in lab by Brooke Santos, JORGE in Left Antecubital via Peripheral IV. Order ed by William Troy. 50 mcg FENTANYL given in lab by Brooke Santos RN in Left Antecubital via Peripheral IV. Order ed by Sydni, 9:03:00 William. Time Out. Correct patient, correct procedure, correct physician, labs, allergies, and equipment verified with clinical lab specialist 9:07:13 team present. Fire risk assesment completed (see hard stop sheet for coding). Time Out Concu rred by and individual staff in procedure. 9:07:18 Case Start 9:07:31 HR=57 bpm, CPSY=344/83 mmhg, SpO2=95.0 %, Resp=10 B/min, Pain=0, Daphnie=10, Abel=2 20 mL 1% XYLOCAINE given in lab by William Troy in Right Groin via Subcutaneous. Ordered by Sydni, 9:09:04 William. 9:10:36 Access site was Right Femoral Artery. A INTRODUCER SET, MICROPUNCTURE STIFF FR 5 was advanced into the Fem Art (right) using the Modif ied Seldinger 9:10:42 technique. A SHEATH, FR4 TERUMO (10CM) FR 4 was exchanged in the Fem Art (right). This was necessary in ord er to achieve 9:10:49 vascular hemostasis. 9:11:54 Activated Clotting Time Drawn 9:12:28 HR=56 bpm, RAHH=298/90 mmhg, SpO2=94.0 %, Resp=19 B/min, Pain=0, Daphnie=10, Abel=2 A JL 4.0 INFINITI CATHETER FR 4 was advanced over a wire. OMNIPAQUE, 350 MG, 150ML 150ML was use d for 9:13:11 injections. Recorded Pressure: Ao, HR=57, Condition=Condition 1 9:14:13 (Aorta) Ao 138/80/104 9:14:33 ACT (Normal Range 90-180) = 129 9:15:39 The LCA was injected and visualized at various angles. OMNIPAQUE, 350 MG, 150ML 150ML used. 9:17:29 HR=58 bpm, WLPD=305/87 mmhg, SpO2=93.0 %, Resp=16 B/min, Pain=0, Daphnie=10, Abel=2 9:18:23 Catheter was removed A JL 5.0 INFINITI CATHETER FR 4 was advanced over a wire. OMNIPAQUE, 350 MG, 150ML 150ML was use d for 9:18:24 injections. 9:20:56 The LCA was injected and visualized at various angles. OMNIPAQUE, 350 MG, 150ML 150ML used. 9:22:28 HR=60 bpm, FQKQ=655/87 mmhg, SpO2=93.0 %, Resp=15 B/min, Pain=0, Daphnie=10, Abel=2 9:25:13 Catheter was removed A 3DRC INFINITI CATHETER FR 4 was advanced over a wire. OMNIPAQUE, 350 MG, 150ML 150ML was used for 9:25:18 injections. 9:27:31 HR=59 bpm, JCVT=663/86 mmhg, SpO2=95.0 %, Resp=15 B/min, Pain=0, Daphnie=10, Abel=2 9:28:10 The RCA was injected and visualized at various angles. OMNIPAQUE, 350 MG, 150ML 150ML used. 9:30:30 Catheter was removed A PIGTAIL ANG. INFINITI CATHETER FR 4 was advanced over a wire. OMNIPAQUE, 350 MG, 150ML 150ML w as used 9:30:39 for injections. 9:32:30 HR=58 bpm, CGPP=541/88 mmhg, SpO2=94.0 %, Resp=15 B/min, Pain=0, Daphnie=10, Abel=2 50 mcg FENTANYL given in lab by Brooke Santos RN in Left Antecubital via Peripheral IV. Order ed by Sydni, 9:32:38 William. 9:33:47 The LV was injected at 8 cc/sec for a total of 32. OMNIPAQUE, 350 MG, 50ML 50ML used. Recorded Pressure: LV, HR=57, Condition=Condition 1 9:34:10 (Left Ventricle) LV 128/21/22 Recorded Pressure: LV, Ao, HR=58, Condition=Condition 1 9:34:19 (Left Ventricle) LV 129/18/22, (Aorta) Ao 129/80/102 9:34:50 Catheter was removed 9:35:18 Case End (Physician broke scrub) 9:37:27 Sheath removed; pressure applied to access site. 9:37:29 HR=56 bpm, RIZI=092/97 mmhg, SpO2=92.0 %, Resp=17 B/min, Pain=0, Daphnie=10, Abel=2 9:42:33 HR=56 bpm, THMJ=249/92 mmhg, SpO2=92.0 %, Resp=10 B/min, Pain=0, Daphnie=10, Abel=2 9:47:31 HR=55 bpm, VCQZ=696/84 mmhg, SpO2=93.0 %, Resp=19 B/min, Pain=0, Daphnie=10, Abel=2 9:50:14 Sterile dressing applied to site 9:50:15 No case complications noted. Assessment: Final Case, HR=55 BPM, Rhythm=sr, FKKQ=138/84 mmhg, Chest Pain=0, Edema=None, Color= Normal, Skin = Warm, Dry Right Pulses: Babatunde Ped=3, Femoral=3 Left Pulses: Babatunde Ped=d, Femoral=2 9:50:18 Lower Right Extremities: Color=Normal Lower Left Extremities: Color=Normal Neurological: State=Alert, Ox3, COLLINS Respiration: Resp=19 B/min, SpO2=93 % 9:50:20 Cine recording checked. 9:50:23 Bedside Report will be given. 9:50:35 A Left Heart Cath was performed. 9:51:14 Vitals capture stopped. 9:52:05 Patient moved to stretcher End Study - Contrast Media Used In Study Contrast Total Opened (mL) Total Used (mL) Total Wasted (mL) Omnipaque 45 45 0 End Study - Maximum Contrast Load Max Contrast Load (mL) 458.7 End Study - Radiation Exposure Fluoro Time (minutes) 3.4 End Study - Patient Disposition Complications Transferred To Telemetry Bed
[2017-11-18] MEDS ORDERED: Iohexol 350 MG/ML 100 ML Vial (for Cath Lab) IVCONTRAST ONE (10:03)
[2017-11-18 11:26] VITALS: RESP 20
--- NOTE | 2017-11-18 11:34 | P.PNIM ---
Subjective Interval history: The patient was resting comfortably in bed. He said the catheterization went very well. He denies any symptoms. He does state chronically he has shortness of breath with exertion and he has seen a supervisor print line and has had breathing studies in the past. Discussed with family at the bedside. Physical Exam Vital signs: Vital Signs 11/17/17 12:00 11/17/17 13:00 11/17/17 14:00 Temperature Pulse Rate 55 L 60 66 Respiratory Rate Blood Pressure Pulse Oximetry 11/17/17 15:00 11/17/17 16:00 11/17/17 17:00 Temperature 98.6 F Pulse Rate 56 L 58 L 62 Respiratory Rate 18 Blood Pressure 145/80 H Pulse Oximetry 98 11/17/17 17:28 11/17/17 18:00 11/17/17 19:00 Temperature 98.4 F Pulse Rate 62 65 Respiratory Rate 16 Blood Pressure 158/87 H Pulse Oximetry 98 98 11/17/17 20:00 11/17/17 21:00 11/17/17 22:00 Temperature Pulse Rate 60 58 L 60 Respiratory Rate Blood Pressure Pulse Oximetry 11/17/17 23:00 11/18/17 00:00 11/18/17 01:00 Temperature 98.1 F Pulse Rate 67 56 L 52 L Respiratory Rate 16 20 Blood Pressure 130/77 Pulse Oximetry 96 11/18/17 02:00 11/18/17 03:00 11/18/17 04:00 Temperature 98.2 F Pulse Rate 54 L 63 68 Respiratory Rate 16 Blood Pressure 132/92 H Pulse Oximetry 95 11/18/17 05:00 11/18/17 06:00 11/18/17 07:00 Temperature 98.2 F Pulse Rate 55 L 61 54 L Respiratory Rate 18 Blood Pressure 150/82 H Pulse Oximetry 98 11/18/17 09:13 11/18/17 10:07 11/18/17 11:00 Temperature 98.2 F 97.8 F Pulse Rate 53 L 54 L Respiratory Rate 20 Blood Pressure 129/87 125/85 Pulse Oximetry 97 95 97 Intake & Output 11/17/17 11/18/17 11/18/17 18:59 06:59 18:59 Intake Total 1480 / 1480 2730 / 2730 Output Total 450 / 450 750 / 750 570 / 570 Balance 1030 / 1030 1979 / 1979 -570 / -570 Weight 100.9 kg Intake: IV 1000 / 1000 2250 / 2250 Heparin/D5W 25,000 U/250 mL 25, 250 / 250 000 unit In 250 ml @ Per Protocol IV.CONT TITRATE PRN Rx #:[id number] NS Inj 1,000 ML @ 100 mls/hr IV 1000 / 1000 1999 / 1999 .CONT .Q10H JAMILA Rx#:[id number] Oral 480 / 480 480 / 480 Output: Urine 450 / 450 750 / 750 570 / 570 Other: Date of Last Bowel Movement 11/17/17 11/17/17 11/17/17 # Bowel Movements 1 Narrative: GENERAL: No acute distress. SKIN: Focused skin assessment warm and dry. HEENT: PERRLA, EOMI. No scleral icterus or conjunctival pallor. No lid lag or facial droop. CARDIOVASCULAR: Regular rate and rhythm. No obvious murmurs to auscultation. No chest tenderness to palpation. RESPIRATORY: No obvious rhonchi or wheezing. Clear to auscultation. Breath sounds equal bilaterally. GASTROINTESTINAL: Abdomen soft, non-tender, nondistended. BS normal. MUSCULOSKELETAL: Extremities without clubbing, cyanosis, or edema. No obvious deformities. Cath site without swelling or bleeding. NEUROLOGICAL: Awake, alert and oriented x4. No focal neurologic deficits. Moving both upper and lower extremities spontaneously. PSYCHIATRIC: Appropriate mood and affect. Insight and judgment normal. Results - Labs CBC & Chem 7: 11/18/17 03:30 11/18/17 03:30 Laboratory Results - last 24 hr 11/17/17 11/17/17 11/17/17 11:08 11:08 13:30 WBC RBC Hgb Hct MCV MCH MCHC RDW Plt Count MPV Neut % (Auto) Lymph % (Auto) Lucas % (Auto) Eos % (Auto) Baso % (Auto) Neut # (Auto) Lymph # (Auto) Lucas # (Auto) Eos # (Auto) Baso # (Auto) WBC Differential Differential Comment APTT 33.3 H Sodium Potassium Chloride Carbon Dioxide Anion Gap BUN Creatinine Estimated GFR Random Glucose Calcium Magnesium Total Creatine Kinase 194 CK-MB (CK-2) 2.4 Troponin I 0.15 H Urine Color Urine Clarity Urine pH Ur Specific Reading Urine Protein Urine Glucose (UA) Urine Ketones Urine Occult Blood Urine Nitrate Urine Bilirubin Urine Urobilinogen Ur Leukocyte Esterase Urine RBC Urine WBC Urine Mucus Micro UA Comment Ur Microscopic Review Urine Culture Comments Ur Random Creatinine 202 Ur Random Sodium 102 11/17/17 11/17/17 11/18/17 13:30 20:24 03:30 WBC RBC Hgb Hct MCV MCH MCHC RDW Plt Count MPV Neut % (Auto) Lymph % (Auto) Lucas % (Auto) Eos % (Auto) Baso % (Auto) Neut # (Auto) Lymph # (Auto) Lucas # (Auto) Eos # (Auto) Baso # (Auto) WBC Differential Differential Comment APTT 34.1 H Sodium 145 Potassium 4.2 Chloride 110 H Carbon Dioxide 28.5 Anion Gap 7 BUN 16 Creatinine 1.09 Estimated GFR 69 L Random Glucose 111 H Calcium 7.9 L Magnesium 2.2 Total Creatine Kinase CK-MB (CK-2) Troponin I Urine Color Yellow Urine Clarity Clear Urine pH 6.0 Ur Specific Reading 1.020 Urine Protein Negative Urine Glucose (UA) Negative Urine Ketones Negative Urine Occult Blood Negative Urine Nitrate Negative Urine Bilirubin Negative Urine Urobilinogen Less than 2 Ur Leukocyte Esterase Negative Urine RBC Less than 1 Urine WBC 1 Urine Mucus Few H Micro UA Comment Culture not ind Ur Microscopic Review Not Reportable Urine Culture Comments Culture not ind Ur Random Creatinine Ur Random Sodium 11/18/17 11/18/17 11/18/17 03:30 03:30 10:59 WBC 6.0 RBC 4.35 L Hgb 13.3 Hct 39.1 MCV 89.8 MCH 30.6 MCHC 34.1 RDW 12.8 Plt Count 145 L MPV 8.9 Neut % (Auto) 68.8 Lymph % (Auto) 23.6 Lucas % (Auto) 4.5 Eos % (Auto) 2.7 Baso % (Auto) 0.4 Neut # (Auto) 4.1 Lymph # (Auto) 1.4 Lucas # (Auto) 0.3 Eos # (Auto) 0.2 Baso # (Auto) 0.0 WBC Differential . Differential Comment Auto diff final APTT 37.8 H 26.1 D Sodium Potassium Chloride Carbon Dioxide Anion Gap BUN Creatinine Estimated GFR Random Glucose Calcium Magnesium Total Creatine Kinase CK-MB (CK-2) Troponin I Urine Color Urine Clarity Urine pH Ur Specific Reading Urine Protein Urine Glucose (UA) Urine Ketones Urine Occult Blood Urine Nitrate Urine Bilirubin Urine Urobilinogen Ur Leukocyte Esterase Urine RBC Urine WBC Urine Mucus Micro UA Comment Ur Microscopic Review Urine Culture Comments Ur Random Creatinine Ur Random Sodium Microbiology 11/17/17 08:45 Stool Stool Occult Blood (GABBY) - Final Hemoccult negative Assessment and Plan - Assessment (1) NSTEMI (non-ST elevated myocardial infarction) Code(s): I21.4 - Non-ST elevation (NSTEMI) myocardial infarction Status: Acute (2) Renal insufficiency Code(s): N28.9 - Disorder of kidney and ureter, unspecified Status: Acute (3) Dehydration Code(s): E86.0 - Dehydration Status: Acute - Plan NSTEMI Trop 0.17, EKG w/ no acute ischemia, remains chest pain free. LDL is 82. Cardiology consult appreciated. S/p cath 11/18, notable for mild coronary disease. -s/p heparin gtt. -continue ASA, statin, ARB and metoprolol. -telemetry. -OK to discharge if cleared by cardiology. JOSEPH Creatinine 1.47, elevated over baseline. FENa 0.5%, indicating pre-renal etiology. -IVF for hydration, monitor I/O. Improved. -OK to resume ARB. Dyspnea on exertion Chronic. CXR unremarkable. Has followed with a supervisor print line in the past and has had breathing studies. Stable on room air at this time. -outpt follow-up. DVT Prophylaxis: Heparin gtt Discharge Planning: Discharge if cleared by cardiology
--- NOTE | 2017-11-18 13:02 | MP ---
cc: William Troy MD, Danny M MD DATE OF OPERATION: 11/18/2017 INDICATIONS FOR CATHETERIZATION: Non-STEMI. CONSENT: A full informed consent was obtained prior to the procedure, risks of , bleeding, myocardial infarction, perforation, aspiration, , or other foreseen complications reviewed. The patient provided appropriate consent as to the risks and is willing to proceed. PROCEDURE: The patient was draped as per regimen. Right femoral artery was entered using a micropuncture technique with a 4-[place] sheath. Left and right coronary arteries, bilateral carotids,, pigtail catheter in ventricle. Multiple angiographic views carried out. At the end of the catheterization procedure, all catheters and sheaths were removed. Manual pressure was applied. Good hemostasis was achieved. The patient went to the room in stable condition. HEMODYNAMICS: Aortic pressure was 129/80 with a mean of 109. The left ventricular pressure was 129 with a left ventricular diastolic pressure of 22. There was no evidence of significant gradient on pullback across the LV outflow tract. LEFT VENTRICULOGRAM: The overall left ventricular ejection fraction was 60%. There was no evidence of significant mitral regurgitation or mural thrombus. CORONARY ARTERIES: Left main was long and had a 25% long stenosis. The left anterior descending artery was diffusely diseased. It gave off 3 small diagonal branches. At the area of the first small diagonal branch, there was a 40% proximal LAD stenosis. In the remainder of the LAD, there was a diffuse 40% stenosis. Then, in the region of the third diagonal branch, in the mid LAD was a 25% stenosis. The circumflex vessel was comprised of early large first obtuse marginal branch. The ostium of the first obtuse marginal branch with some mild 25% eccentric stenosis. In the body of the obtuse marginal branch in the mid section, in a very pulsatile portion of the vessel, almost a hinge point, there was a 40% stenosis. The second obtuse marginal branch was small and in the body of the circumflex just after the first obtuse marginal branch, there was a 25% mild stenosis. The right coronary artery was a large dominant vessel. It gave off 3 sub branches, the first 2 were medium and the third one was large. The first subbranch was a posterior descending artery and had a mild 25% stenosis in its mid section. Second branch was also moderate in size and was the first posterolateral. The second posterolateral was a large vessel and had some mild diffuse disease. CONCLUSION: Normal left ventricular function, mild diffuse disease, no obvious cause for non-STEMI noted. The patient appears to have long pauses on the monitor following PVCs. We will evaluate for possible bradyarrhythmia as the cause of these symptoms. MD KEIRY Ragland/jennifer/twila , 09:51 AM , 10:02 AM MTDCl
[2017-11-18 15:11] VITALS: BP 134/83; TEMP 98; O2SAT 95
[2017-11-18] MEDS: Acetaminophen 325 MG Tablet PO PRN (15:59)
[2017-11-18 17:24] VITALS: PULSE 56
== END 2017-11-18 19:00 | disposition home or self-care (01) ==
LOC: NEPC 20:35 → NEDA 22:57 → HCIS 23:56
PROVIDERS: ADMIT Family Medicine; ATTEND Family Medicine